=== PATIENT | male | born 1980 | race Caucasian/White ===

== ENCOUNTER 2016-06-03 13:33 | Emergency (ER) | payer SELFPAY ==
[~2016-06-03 13:33] MED LIST: IBUPROFEN200 MG PO; NORCO 5/325 TAB1 TAB PO; PRILOSEC20 MG PO; ZITHROMAX250MG Z-PAK PO
[2016-06-03] MEDS ORDERED: IBUPROFEN800 M1 PO (15:46)
== END 2016-06-03 15:54 ==
LOC: EDMED 13:33
DX: M54.12 Radiculopathy, cervical region (principal); K21.9 Gastro-esophageal reflux disease without esophagitis; F17.210 Nicotine dependence, cigarettes, uncomplicated